=== PATIENT | female | born 1955 | race Caucasian/White ===

== ENCOUNTER → 2017-06-23 | Outpatient (CLI) | payer SELFPAY ==
[~2017-06-23] MED LIST: ASPI81TA94 PO; CARB1DRO24 OP; LAMO200T3 PO; LOSA50TA72 PO; MELO-205 PO; MULT1CAP59 PO; OMEP-125 PO; PROP20TA56 PO; SIMV-54 PO; SOY155CA; TRAZ-156 PO; VENL150C61 PO
--- NOTE | 2017-06-23 14:47 | RADIOLOGY IMAGING REPORT ---
FACILITY: [facility] - [place] PATIENT NAME: Tracy Noble : 1955 MR: [id number] V: [id number] EXAM DATE: ORDERING PHYSICIAN: BETO ARIAS TECHNOLOGIST: Location: [facility] Patient: Tracy Noble : 1955 Visit/Account:[id number] Date of Sevice: 06/23/2017 Technique: CHEST PA AND LAT HISTORY: Chest pain COMPARISON: None available Findings: The lungs are clear. No pleural effusion or pneumothorax. The cardiomediastinal silhouett e is normal. Impression: 1. No acute cardiopulmonary process. Report Dictated By: Sixto Anglin DO at 06/23/2017 2:42 PM Report E-Signed By: Sixto Anglin DO at 06/23/2017 2:43 PM WSN:[id number]
[2017-06-23 14:50] LABS: PLATELET COUNT, AUTOMATED 258 K/uL (150-450)
--- NOTE | 2017-06-23 15:00 | EKG ---
FACILITY: [facility] - [place] PATIENT NAME: BEBETO BOOGIE : [id number] MR: [id number] V: [id number] EXAM DATE: ORDERING PHYSICIAN: BETO ARIAS TECHNOLOGIST: FAIZA Test Reason : CHEST PAIN Blood Pressure : / mmHG Vent. Rate : 059 BPM Atrial Rate : 059 BPM P-R Int : 154 ms QRS Dur : 096 ms QT Int : 414 ms P-R-T Axes : 064 012 030 degrees QTc Int : 409 ms Sinus bradycardia Nonspecific T wave abnormality Abnormal ECG No previous ECGs available Referred By: SVETLANA THOMSON Confirmed By:
== END ==
LOC: LAB 14:02
PROVIDERS: ATTEND Nurse Practitioner Family
DX: R00.1 Bradycardia, unspecified (principal); R94.31 Abnormal electrocardiogram [ECG] [EKG]
CPT/HCPCS: 36415; 71046; 82040; 82247; 82310; 82374; 82435; 82565; 82947; 84075; 84132; 84155; 84295; 84450; 84460; 84484; 84520; 85025

== ENCOUNTER 2018-03-20 11:21 | Emergency (ER) | payer OTHER ==
[~2018-03-20 11:21] MED LIST changes: -LOSA50TA72 PO; +LOSA50TA80 PO; -TRAZ-156 PO; +TRAZ50TA34 PO
[2018-03-20 11:26] VITALS: BP 131/79
--- NOTE | 2018-03-20 11:33 | ER Report ---
History and Physical Time Seen By MD: 11:33 Hx. of Stated Complaint: PT HAS BEEN HAVING FLU LIKE SYMPTOMS FOR A WEEK. PT COMPLAINS OF SORE THROAT, FATIGUE, NAUSEA, SINUS PRESSURE, HEADACHE, AND NON PRODUCTIVE COUGH HPI/ROS CHIEF COMPLAINT: Cough, sinus congestion, sore throat HISTORY OF PRESENT ILLNESS: 62-year-old female patient presents to emergency room with complaint of cough, sinus congestion sore throat. Patient states that this is been going on for approximately one week. She states that things seem to get worse on March 16. She states that she's been taking Tylenol and cold and flu medication. She states that is the only thing that seems to help. She had a day where she slept entirely through the night, through the day and then through the next night. She states she been up for approximately 10 minutes. She denies any nausea, vomiting or diarrhea. States that she has had a low-grade fever of 99 at home. REVIEW OF SYSTEMS: Respiratory: As noted above Cardiovascular: No chest pain, no palpitations. Gastrointestinal: No vomiting, no abdominal pain. Musculoskeletal: No back pain. Allergies: Coded Allergies: Fish Containing Products (Verified Allergy, Severe, Hypotension, bradycardia, weakness, nausea, 06/23/17) carbamazepine (Verified Allergy, Severe, Facial swelling, 06/23/17) avocado (Verified Allergy, Intermediate, Hypotension, bradycardia, weakness, nausea, 06/23/17) Home Meds Active Scripts Propranolol Hcl (PROPRANOLOL HCL) 20 Mg Tablet, 20 MG PO QDAY, #30 TAB Prov:BETO ARIAS NANOTECHNICIAN-BC 06/23/17 Reported Medications Carboxymethylcellulose Sodium (THERA TEARS) Unknown Strength Droperette, OP 06/23/17 Soy Isofla/Blk Cohosh/Mag Bark (Estroven 155 mg Capsule) Unknown Strength Capsule 06/23/17 Simvastatin (SIMVASTATIN) 40 Mg Tablet, 40 MG PO HS, TAB 06/23/17 Multivitamin (MULTIVITAMINS) Unknown Strength Capsule, PO, CAPSULE 06/23/17 Aspirin (ASPIRIN) 81 Mg Tab.chew, 81 MG PO QDAY, TAB.CHEW 06/23/17 Meloxicam (MELOXICAM) 7.5 Mg Tablet, 7.5 MG PO QDAY 06/23/17 Lamotrigine (LAMOTRIGINE) 200 Mg Tab.er.24, 200 MG PO 06/23/17 Venlafaxine Hcl (EFFEXOR XR) 150 Mg Cap.er.24h, 1 TAB PO BID 06/23/17 Discontinued Reported Medications Omeprazole (OMEPRAZOLE) Unknown Strength Capsule.dr, PO BID, CAP 06/23/17 Trazodone Hcl (TRAZODONE HCL) 50 Mg Tablet, 50 MG PO QHS 06/23/17 Losartan Potassium (LOSARTAN POTASSIUM) 50 Mg Tablet, 50 MG PO QDAY 06/23/17 Past Medical/Surgical History Patient has a past medical history of essential tremors, heart murmur, hyperlipidemia, asthma, cholecystitis, arthritis, bipolar. Patient has a surgical history of hysterectomy. Reviewed Nurses Notes: Yes Smoking Status: Former Smoker Constitutional Vital Sign - Last 24 Hours 03/20/18 03/20/18 03/20/18 03/20/18 11:24 11:26 11:30 11:51 Temp 99.0 Pulse 73 68 Resp 16 B/P (MAP) 131/79 (96) 131/79 Pulse Ox 90 85 91 O2 Delivery Room Air Room Air Nasal Cannula O2 Flow Rate 2 03/20/18 03/20/18 03/20/18 12:21 12:51 12:55 Pulse 69 69 Pulse Ox 88 88 93 O2 Delivery Nasal Cannula Nasal Cannula Nasal Cannula O2 Flow Rate 2 2 2 Physical Exam General Appearance: The patient is alert, has no immediate need for airway protection and no current signs of toxicity. ENT: Tympanic membranes are pearly-barba, auditory canals are patent, mucous memb ranes are moist. Respiratory: Chest is non tender, lungs are clear to auscultation. Cardiac: regular rate and rhythm Gastrointestinal: Abdomen is soft and non tender, no masses, bowel sounds normal. Musculoskeletal: Neck: Neck is supple and non tender. Extremities have full range of motion and are non tender. Skin: No rashes or lesions. [DIFFERENTIAL DIAGNOSIS: After history and physical exam differential diagnosis was considered for] [ ] Medical Decision Making Data Points Result Diagram: 03/20/18 1154 03/20/18 1154 Laboratory Hematology Test 03/20/18 11:41 03/20/18 11:54 Influenza Virus Type A (PCR) Negative (NEGATIVE) Influenza Virus Type B (PCR) Negative (NEGATIVE) Respiratory Syncytial Virus (PCR) Positive (NEGATIVE) Red Blood Count 4.60 M/uL (4.17-5.56) Mean Corpuscular Volume 92.3 fL (80.0-96.0) Mean Corpuscular Hemoglobin 31.3 pg (26.0-33.0) Mean Corpuscular Hemoglobin Concent 33.9 g/dL (32.0-36.0) Red Cell Distribution Width 13.5 % (11.5-14.5) Mean Platelet Volume 7.7 fL (7.2-11.1) Neutrophils (%) (Auto) 77.1 % (39.4-72.5) Lymphocytes (%) (Auto) 14.3 % (17.6-49.6) Monocytes (%) (Auto) 6.5 % (4.1-12.4) Eosinophils (%) (Auto) 1.6 % (0.4-6.7) Basophils (%) (Auto) 0.5 % (0.3-1.4) Nucleated RBC Relative Count (auto) 0.0 /100WBC Neutrophils # (Auto) 7.2 K/uL (2.0-7.4) Lymphocytes # (Auto) 1.3 K/uL (1.3-3.6) Monocytes # (Auto) 0.6 K/uL (0.3-1.0) Eosinophils # (Auto) 0.2 K/uL (0.0-0.5) Basophils # (Auto) 0.0 K/uL (0.0-0.1) Nucleated RBC Absolute Count (auto) 0.00 K/uL Sodium Level 137 mmol/L (137-145) Potassium Level 3.9 mmol/L (3.5-5.0) Chloride Level 102 mmol/L (98-107) Carbon Dioxide Level 27 mmol/L (22-31) Blood Urea Nitrogen 14 mg/dl (7-18) Creatinine 0.70 mg/dl (0.52-1.04) Glomerular Filtration Rate Calc > 60.0 Random Glucose 161 mg/dl (75-110) Calcium Level 9.4 mg/dl (8.4-10.2) Total Bilirubin 0.9 mg/dl (0.2-1.3) Aspartate Amino Transf (AST/SGOT) 69 U/L (0-35) Alanine Aminotransferase (ALT/SGPT) 80 U/L (0-56) Alkaline Phosphatase 73 U/L (0-126) Total Protein 7.3 g/dl (6.3-8.2) Albumin 4.1 g/dl (3.5-5.0) Chemistry Test 03/20/18 11:41 03/20/18 11:54 Influenza Virus Type A (PCR) Negative (NEGATIVE) Influenza Virus Type B (PCR) Negative (NEGATIVE) Respiratory Syncytial Virus (PCR) Positive (NEGATIVE) White Blood Count 9.3 k/uL (4.5-11.0) Red Blood Count 4.60 M/uL (4.17-5.56) Hemoglobin 14.4 g/dL (12.0-16.0) Hematocrit 42.4 % (34.0-47.0) Mean Corpuscular Volume 92.3 fL (80.0-96.0) Mean Corpuscular Hemoglobin 31.3 pg (26.0-33.0) Mean Corpuscular Hemoglobin Concent 33.9 g/dL (32.0-36.0) Red Cell Distribution Width 13.5 % (11.5-14.5) Platelet Count 246 K/uL (150-450) Mean Platelet Volume 7.7 fL (7.2-11.1) Neutrophils (%) (Auto) 77.1 % (39.4-72.5) Lymphocytes (%) (Auto) 14.3 % (17.6-49.6) Monocytes (%) (Auto) 6.5 % (4.1-12.4) Eosinophils (%) (Auto) 1.6 % (0.4-6.7) Basophils (%) (Auto) 0.5 % (0.3-1.4) Nucleated RBC Relative Count (auto) 0.0 /100WBC Neutrophils # (Auto) 7.2 K/uL (2.0-7.4) Lymphocytes # (Auto) 1.3 K/uL (1.3-3.6) Monocytes # (Auto) 0.6 K/uL (0.3-1.0) Eosinophils # (Auto) 0.2 K/uL (0.0-0.5) Basophils # (Auto) 0.0 K/uL (0.0-0.1) Nucleated RBC Absolute Count (auto) 0.00 K/uL Glomerular Filtration Rate Calc > 60.0 Calcium Level 9.4 mg/dl (8.4-10.2) Total Bilirubin 0.9 mg/dl (0.2-1.3) Aspartate Amino Transf (AST/SGOT) 69 U/L (0-35) Alanine Aminotransferase (ALT/SGPT) 80 U/L (0-56) Alkaline Phosphatase 73 U/L (0-126) Total Protein 7.3 g/dl (6.3-8.2) Albumin 4.1 g/dl (3.5-5.0) EKG/Imaging Imaging CHEST PA AND LAT HISTORY: 62-year-old female with shortness of breath. COMPARISON: June 23, 2017 FINDINGS: Cardiomediastinal contours: The heart size is normal. Lungs and pleura: There is no finding of an infiltrate, lymphadenopathy or pleural effusion. Bones/soft tissues: There are no findings of a fracture. IMPRESSION: No active disease in the chest. Report Dictated By: Jah Naidu MD at 03/20/2018 1:03 PM Report E-Signed By: Jah Naidu MD at 03/20/2018 1:03 PM ED Course/Re-evaluation ED Course Patient submitted to an exam room, history and physical were obtained. Differential diagnoses were considered. On examination lungs are clear, heart is regular, abdomen soft nontender. An influenza, RSV, CBC, CMP and chest x-ray were done. CBC and CMP were unremarkable, influenza was negative, RSV was p ositive. Chest x-ray showed no acute cardiopulmonary processes. I believe that the patient is having cough and feeling so poorly because of the RSV. I discussed that with patient. She states that she had a grandson was visiting that had been ill and she started getting sick approximately one day after he had returned home. I believe this is likely where she got in the RSV. Patient did have some episodes of hypoxia when she would dip down into the 85%. I discussed home oxygen with patient. She refused stating that she is not able to afford it, stating that she did not believe that her insurance would cover. She states that she is going to use her mother's oxygen tanks which she doesn't use. Decision to Disposition Date: Mar 20, 2018 Decision to Disposition Time: 13:21 Depart Departure Latest Vital Signs Vital Signs Date Time Temp Pulse Resp B/P (MAP) Pulse Ox O2 Delivery O2 Flow Rate FiO2 03/20/18 12:55 93 Nasal Cannula 2 03/20/18 12:51 69 03/20/18 11:26 99.0 16 131/79 Impression: Primary Impression: RSV (respiratory syncytial virus infection) Condition: Improved Disposition: HOME OR SELF-CARE Patient Instructions: Respiratory Syncytial Virus (ED) Additional Instructions: Increase fluid intake. Get plenty of rest. Continue taking Ibuprofen and the flu medication. Limit activity by how you are feeling. Return to the ER if condition worsens. Follow up with your primary care provider in the next week. This should improve over the next 3-5 days. RAMSES ALBARADO Mar 20, 2018 11:33
[2018-03-20 12:01] LABS: PLATELET COUNT, AUTOMATED 246 K/uL (150-450)
--- NOTE | 2018-03-20 13:07 | RADIOLOGY IMAGING REPORT ---
FACILITY: [facility] [place] PATIENT NAME: Tracy Rivers : 1955 MR: [id number] V: [id number] EXAM DATE: ORDERING PHYSICIAN: RAMSES ALBARAOD TECHNOLOGIST: [place] [facility] [place] : 1955 Visit/Account:[id number] Date of Sevice: 03/20/2018 CHEST PA AND LAT HISTORY: 62-year-old female with shortness of breath. COMPARISON: June 23, 2017 FINDINGS: Cardiomediastinal contours: The heart size is normal. Lungs and pleura: There is no finding of an infiltrate, lymphadenopathy or pleural effusion. Bones/soft tissues: There are no findings of a fracture. IMPRESSION: No active disease in the chest. Report Dictated By: Jah Naidu MD at 03/20/2018 1:03 PM Report E-Signed By: Jah Naidu MD at 03/20/2018 1:03 PM [id number]
== END 2018-03-20 13:34 | disposition home or self-care (01) ==
LOC: ER 11:24
DX: J21.0 Acute bronchiolitis due to respiratory syncytial virus (principal)
CPT/HCPCS: 36415; 71046; 82040; 82247; 82310; 82374; 82435; 82565; 82947; 84075; 84132; 84155; 84295; 84450; 84460; 84520; 85025; 87502; 87798; 99283

== ENCOUNTER 2018-03-24 08:17 | Emergency (ER) | payer OTHER ==
[2018-03-24] MEDS ORDERED: NS(*) 0.9% 1000 ML BAG 1,000 ML IV ONE (09:10)
--- NOTE | 2018-03-24 09:19 | ER Report ---
History and Physical Time Seen By MD: 08:55 Hx. of Stated Complaint: pt self diagnosed pneumonia, hoarse voice and cough, pressure in chest, "prickly pain in chest". blood tinged sputum. r side ear clogged. fatigued HPI/ROS CHIEF COMPLAINT: shortness of breath HISTORY OF PRESENT ILLNESS: Pt has had 2 wks of dyspnea, cough. Pt has mild coughing paroxysms, followed by shortness of breath that improves, and associated with bilateral, lateral lower chest/rib pain, melvin during coughing. Was seen here last week, dx'd with viral resp infection, sent home on 02, and returns because this has not resolved and she is worse. Pt feels fatigued, has developed voice hoarseness, myalgias, and 'clogged r ear'. Of note, nursing note states 'pressure in chest'; pt denies central/l chest pain/pressure; she points to lateral lower ribs when describing pain. No chest pain/pressure on exertion. Pt did fly by air to [place] last month, no prior VTE, notes no LE edema or pain. No syncope. Decreased po intake, dark urine, no dysuria, no change in stools. Has been taking otc meds, no recent abx, prednisone, albuterol. Notes she has mild asthma and takes symbacort. Feels like she has been wheezing. REVIEW OF SYSTEMS: Constitutional: chills Eyes: No discharge. ENT: sore throat, other as above Cardiovascular: as above Respiratory: as above Gastrointestinal: mild abd pain trhoughout with coughing. + nausea, no vomiting Genitourinary: above Musculoskeletal: No back pain. Skin: No rashes. Neurological: no focal weakness Remainder of the 14 system rev: Yes Allergies: Coded Allergies: Fish Containing Products (Verified Allergy, Severe, Hypotension, bradycardia, weakness, nausea, 06/23/17) carbamazepine (Verified Allergy, Severe, Facial swelling, 06/23/17) avocado (Verified Allergy, Intermediate, Hypotension, bradycardia, weakness, nausea, 06/23/17) Iodine and Iodide Containing Produc (Verified Allergy, Mild, rash, 03/24/18) Home Meds Active Scripts Albuterol Sulfate (ALBUTEROL SULFATE) 0.63 Mg/3 Ml Vial.neb, 0.63 MG IH Q4-6H, #30 VIAL Prov:MAL HENSON MD 03/24/18 Propranolol Hcl (PROPRANOLOL HCL) 20 Mg Tablet, 20 MG PO QDAY, #30 TAB Prov:BETO ARIAS Blanca LEAD HOUSEKEEPER-BC 06/23/17 Reported Medications Carboxymethylcellulose Sodium (THERA TEARS) Unknown Strength Droperette, OP 06/23/17 Soy Isofla/Blk Cohosh/Mag Bark (Estroven 155 mg Capsule) Unknown Strength Capsule 06/23/17 Simvastatin (SIMVASTATIN) 40 Mg Tablet, 40 MG PO HS, TAB 06/23/17 Multivitamin (MULTIVITAMINS) Unknown Strength Capsule, PO, CAPSULE 06/23/17 Aspirin (ASPIRIN) 81 Mg Tab.chew, 81 MG PO QDAY, TAB.CHEW 06/23/17 Meloxicam (MELOXICAM) 7.5 Mg Tablet, 7.5 MG PO QDAY 06/23/17 Lamotrigine (LAMOTRIGINE) 200 Mg Tab.er.24, 200 MG PO 06/23/17 Venlafaxine Hcl (EFFEXOR XR) 150 Mg Cap.er.24h, 1 TAB PO BID 06/23/17 Discontinued Reported Medications Omeprazole (OMEPRAZOLE) Unknown Strength Capsule.dr, PO BID, CAP 06/23/17 Trazodone Hcl (TRAZODONE HCL) 50 Mg Tablet, 50 MG PO QHS 06/23/17 Losartan Potassium (LOSARTAN POTASSIUM) 50 Mg Tablet, 50 MG PO QDAY 06/23/17 Reviewed Nurses Notes: Yes Old Medical Records Reviewed: Yes Smoking Status: Former Smoker Hx Substance Use Disorder: No Hx Alcohol Use: No Constitutional Vital Sign - Last 24 Hours 03/24/18 03/24/18 03/24/18 03/24/18 08:17 08:21 08:22 08:30 Temp 98.0 Pulse ??? 65 Resp 18 B/P (MAP) 118/69 118/69 (85) 122/82 (95) Pulse Ox 86 O2 Delivery Room Air 03/24/18 03/24/18 03/24/18 03/24/18 08:32 08:37 09:00 09:02 Pulse 61 65 Resp 17 B/P (MAP) 91/77 (82) Pulse Ox 96 97 O2 Flow Rate 1.0 03/24/18 03/24/18 03/24/18 03/24/18 09:17 09:30 09:32 09:47 Pulse ??? 58 65 Resp 45 8 19 B/P (MAP) 121/77 (92) Pulse Ox 94 98 97 03/24/18 03/24/18 03/24/18 03/24/18 10:00 10:02 10:07 10:22 Pulse ? 62 Resp 14 B/P (MAP) 99/72 (81) Pulse Ox 92 03/24/18 03/24/18 03/24/18 03/24/18 10:30 10:37 10:52 11:00 Pulse 63 63 Resp 12 9 B/P (MAP) 134/78 (96) 129/80 (96) Pulse Ox 95 95 03/24/18 03/24/18 03/24/18 03/24/18 11:07 11:22 11:30 11:37 Pulse 65 73 61 Resp 5 B/P (MAP) 133/81 (98) Pulse Ox 92 95 94 03/24/18 03/24/18 11:52 12:00 Pulse 63 B/P (MAP) 127/75 (92) Pulse Ox 93 Physical Exam General Appearance: The patient is alert, has no immediate need for airway protection and no signs of toxicity. Eyes: Pupils equal and round no pallor or injection. ENT, Mouth: Mucous membranes are moist. Mild op erythema without tonsilar enlargement or exudates. Hoarse voice. TM's clear Respiratory: There are no retractions, lungs are clear to auscultation. No rales/ronchi/wheezes Cardiovascular: Regular rate and rhythm. no m/r/g Gastrointestinal: Abdomen is soft and non tender, no masses, bowel sounds normal. Neurological: alert, oriented, moves all ext Skin: Warm and dry, no rashes. Musculoskeletal: Extremities are nontender, nonswollen and have full range of motion. DIFFERENTIAL DIAGNOSIS: After history and physical exam differential diagnosis was considered for shortness of breath including but not limited to pulmonary infectious process, COPD, asthma, pulmonary embolus and congestive heart failure, acs. Medical Decision Making Data Points Result Diagram: 03/24/18 0830 03/24/18 0830 Laboratory Hematology Test 03/24/18 00:00 03/24/18 08:30 03/24/18 08:45 03/24/18 10:09 D-Dimer Quantitative (PE/DVT) 0.58 ug/ml (0-0.50) Red Blood Count 4.26 M/uL (4.17-5.56) Mean Corpuscular Volume 91.7 fL (80.0-96.0) Mean Corpuscular Hemoglobin 31.0 pg (26.0-33.0) Mean Corpuscular Hemoglobin Concent 33.8 g/dL (32.0-36.0) Red Cell Distribution Width 13.4 % (11.5-14.5) Mean Platelet Volume 8.0 fL (7.2-11.1) Neutrophils (%) (Auto) 61.9 % (39.4-72.5) Lymphocytes (%) (Auto) 25.9 % (17.6-49.6) Monocytes (%) (Auto) 8.5 % (4.1-12.4) Eosinophils (%) (Auto) 3.0 % (0.4-6.7) Basophils (%) (Auto) 0.7 % (0.3-1.4) Nucleated RBC Relative Count (auto) 0.0 /100WBC Neutrophils # (Auto) 5.3 K/uL (2.0-7.4) Lymphocytes # (Auto) 2.2 K/uL (1.3-3.6) Monocytes # (Auto) 0.7 K/uL (0.3-1.0) Eosinophils # (Auto) 0.3 K/uL (0.0-0.5) Basophils # (Auto) 0.1 K/uL (0.0-0.1) Nucleated RBC Absolute Count (auto) 0.00 K/uL Sodium Level 140 mmol/L (137-145) Potassium Level 4.0 mmol/L (3.5-5.0) Chloride Level 102 mmol/L (98-107) Carbon Dioxide Level 29 mmol/L (22-31) Blood Urea Nitrogen 12 mg/dl (7-18) Creatinine 0.70 mg/dl (0.52-1.04) Glomerular Filtration Rate Calc > 60.0 Random Glucose 121 mg/dl (75-110) Calcium Level 9.3 mg/dl (8.4-10.2) Total Bilirubin 0.6 mg/dl (0.2-1.3) Aspartate Amino Transf (AST/SGOT) 75 U/L (0-35) Alanine Aminotransferase (ALT/SGPT) 87 U/L (0-56) Alkaline Phosphatase 122 U/L (0-126) B-Type Natriuretic Peptide 32 pg/ml (0-100) Total Protein 7.5 g/dl (6.3-8.2) Albumin 4.1 g/dl (3.5-5.0) Influenza Virus Type A (PCR) Negative (NEGATIVE) Influenza Virus Type B (PCR) Negative (NEGATIVE) Urine Color Layla Urine Clarity Cloudy Urine pH 5.0 pH (4.8-9.5) Urine Specific [place] 1.025 Urine Protein 100 mg/dL (NEGATIVE) Urine Glucose (UA) Negative mg/dL (NEGATIVE) Urine Ketones Negative mg/dL (NEGATIVE) Urine Blood Large (NEGATIVE) Urine Nitrite Negative (NEGATIVE) Urine Bilirubin Negative (NEGATIVE) Urine Urobilinogen 4.0 mg/dL (0.2-1.9) Urine Leukocyte Esterase Small (NEGATIVE) Urine RBC 1970 /HPF (0-2/HPF) Urine WBC None /HPF (0-5/HPF) Urine Squamous Epithelial Cells Many /LPF (</=FEW) Urine Bacteria Negative /HPF (NONE-FEW) Urine Hyaline Casts Many /LPF (NONE-FEW) Urine Mucus Few /HPF (NONE-FEW) Urine Yeast (Budding) Few /HPF Chemistry Test 03/24/18 00:00 03/24/18 08:30 03/24/18 08:45 03/24/18 10:09 D-Dimer Quantitative (PE/DVT) 0.58 ug/ml (0-0.50) White Blood Count 8.6 k/uL (4.5-11.0) Red Blood Count 4.26 M/uL (4.17-5.56) Hemoglobin 13.2 g/dL (12.0-16.0) Hematocrit 39.0 % (34.0-47.0) Mean Corpuscular Volume 91.7 fL (80.0-96.0) Mean Corpuscular Hemoglobin 31.0 pg (26.0-33.0) Mean Corpuscular Hemoglobin Concent 33.8 g/dL (32.0-36.0) Red Cell Distribution Width 13.4 % (11.5-14.5) Platelet Count 309 K/uL (150-450) Mean Platelet Volume 8.0 fL (7.2-11.1) Neutrophils (%) (Auto) 61.9 % (39.4-72.5) Lymphocytes (%) (Auto) 25.9 % (17.6-49.6) Monocytes (%) (Auto) 8.5 % (4.1-12.4) Eosinophils (%) (Auto) 3.0 % (0.4-6.7) Basophils (%) (Auto) 0.7 % (0.3-1.4) Nucleated RBC Relative Count (auto) 0.0 /100WBC Neutrophils # (Auto) 5.3 K/uL (2.0-7.4) Lymphocytes # (Auto) 2.2 K/uL (1.3-3.6) Monocytes # (Auto) 0.7 K/uL (0.3-1.0) Eosinophils # (Auto) 0.3 K/uL (0.0-0.5) Basophils # (Auto) 0.1 K/uL (0.0-0.1) Nucleated RBC Absolute Count (auto) 0.00 K/uL Glomerular Filtration Rate Calc > 60.0 Calcium Level 9.3 mg/dl (8.4-10.2) Total Bilirubin 0.6 mg/dl (0.2-1.3) Aspartate Amino Transf (AST/SGOT) 75 U/L (0-35) Alanine Aminotransferase (ALT/SGPT) 87 U/L (0-56) Alkaline Phosphatase 122 U/L (0-126) B-Type Natriuretic Peptide 32 pg/ml (0-100) Total Protein 7.5 g/dl (6.3-8.2) Albumin 4.1 g/dl (3.5-5.0) Influenza Virus Type A (PCR) Negative (NEGATIVE) Influenza Virus Type B (PCR) Negative (NEGATIVE) Urine Color Layla Urine Clarity Cloudy Urine pH 5.0 pH (4.8-9.5) Urine Specific [place] 1.025 Urine Protein 100 mg/dL (NEGATIVE) Urine Glucose (UA) Negative mg/dL (NEGATIVE) Urine Ketones Negative mg/dL (NEGATIVE) Urine Blood Large (NEGATIVE) Urine Nitrite Negative (NEGATIVE) Urine Bilirubin Negative (NEGATIVE) Urine Urobilinogen 4.0 mg/dL (0.2-1.9) Urine Leukocyte Esterase Small (NEGATIVE) Urine RBC 1970 /HPF (0-2/HPF) Urine WBC None /HPF (0-5/HPF) Urine Squamous Epithelial Cells Many /LPF (</=FEW) Urine Bacteria Negative /HPF (NONE-FEW) Urine Hyaline Casts Many /LPF (NONE-FEW) Urine Mucus Few /HPF (NONE-FEW) Urine Yeast (Budding) Few /HPF Coagulation Test 03/24/18 00:00 D-Dimer Quantitative (PE/DVT) 0.58 ug/ml Urinalysis Test 03/24/18 10:09 Urine Color Layla Urine Clarity Cloudy Urine pH 5.0 pH (4.8-9.5) Urine Specific [place] 1.025 Urine Protein 100 mg/dL (NEGATIVE) Urine Glucose (UA) Negative mg/dL (NEGATIVE) Urine Ketones Negative mg/dL (NEGATIVE) Urine Blood Large (NEGATIVE) Urine Nitrite Negative (NEGATIVE) Urine Bilirubin Negative (NEGATIVE) Urine Urobilinogen 4.0 mg/dL (0.2-1.9) Urine Leukocyte Esterase Small (NEGATIVE) Urine RBC 1970 /HPF (0-2/HPF) Urine WBC None /HPF (0-5/HPF) Urine Squamous Epithelial Cells Many /LPF (</=FEW) Urine Bacteria Negative /HPF (NONE-FEW) Urine Hyaline Casts Many /LPF (NONE-FEW) Urine Mucus Few /HPF (NONE-FEW) Urine Yeast (Budding) Few /HPF EKG/Imaging EKG Interpretation 12 lead EKG: Rhythm: normal sinus rhythm [place]: normal QRS: normal ST segments: normal Normal sociology faculty member Interpretation: Normal Sinus Rhythm ED Course/Re-evaluation ED Course Pt presents with congestion/chest discomfort; most clinically c/w viral respiratory infection. Considered but v low likelihood acs, pe, bacterial pna, or other emergent etiology after ED eval. Of note, pt has incidental hematuria/proteinuria of unclear etiology; pt informed and understands need for close f/u and SRP's. Decision to Disposition Date: Mar 24, 2018 Decision to Disposition Time: 12:25 Depart Departure Latest Vital Signs Vital Signs Date Time Temp Pulse Resp B/P (MAP) Pulse Ox O2 Delivery O2 Flow Rate FiO2 03/24/18 12:00 127/75 (92) 03/24/18 11:52 63 93 03/24/18 11:07 5 03/24/18 08:37 1.0 03/24/18 08:21 98.0 Room Air Impression: Primary Impression: Lower respiratory infection Additional Impression: Hematuria Condition: Improved Disposition: HOME OR SELF-CARE Referrals: [facility] 2 Days follow up with [facility] or your primary doctor within 1 week for re- evaluation and recheck of urine New Scripts Albuterol Sulfate (ALBUTEROL SULFATE) 0.63 Mg/3 Ml Vial.neb 0.63 MG IH Q4-6H, #30 VIAL Prov: MAL HENSON MD 03/24/18 Patient Instructions: Upper Respiratory Infection (ED) Additional Instructions: we discussed, follow up within 1 week for repeat urine testing by your primary doctor to look for blood/protein, and determine need for urology evaluation Please return immediately for worsening difficulty breathing, feeling worse, not able to tolerate fluids, chest pain, or any concerns. Problem Qualifiers Additional Impression: Hematuria Hematuria type: unspecified type Qualified Codes: R31.9 - Hematuria, unspecified MAL HENSON MD Mar 24, 2018 09:19
[2018-03-24 09:33] LABS: PLATELET COUNT, AUTOMATED 309 K/uL (150-450)
--- NOTE | 2018-03-24 09:39 | RADIOLOGY IMAGING REPORT ---
FACILITY: [facility] PATIENT NAME: Tracy Rivers : 1955 MR: [id number] V: [id number] EXAM DATE: ORDERING PHYSICIAN: MAL HENSON TECHNOLOGIST: Location: [facility] - [place] Patient: Tracy Rivers : 1955 Visit/Account:[id number] Date of Sevice: 03/24/2018 2 VIEWS CHEST INDICATION: Dyspnea. COMPARISON: March 20, 2018. FINDINGS: Heart size within normal limits. There is no focal infiltrate or lobar consolidation. There is no pneumothorax or pleural effusion. IMPRESSION: 1. No acute cardiopulmonary process. Report Dictated By: Artis Bartholomew MD at 03/24/2018 9:33 AM Report E-Signed By: Artis Bartholomew MD at 03/24/2018 9:34 AM WSN:[id number]
[2018-03-24] MEDS ORDERED: ALBU0.636 IH (11:22)
--- NOTE | 2018-03-24 11:51 | EKG ---
FACILITY: [facility] - [place] PATIENT NAME: BEBETO ESTRADA : [id number] MR: [id number] V: [id number] EXAM DATE: ORDERING PHYSICIAN: MAL HENSON TECHNOLOGIST: CHARLA Test Reason : SOB Blood Pressure : / mmHG Vent. Rate : 060 BPM Atrial Rate : 060 BPM P-R Int : 150 ms QRS Dur : 086 ms QT Int : 428 ms P-R-T Axes : 061 009 013 degrees QTc Int : 428 ms Normal sinus rhythm Normal ECG When compared with ECG of 23-JUN-2017 13:15, No significant change was found Confirmed by Marty Omer ([id number]) on 03/24/2018 1:26:42 PM Referred By: NATIVIDAD Confirmed By:Marty Dumont
[2018-03-24 12:00] VITALS: BP 127/75
== END 2018-03-24 12:36 | disposition home or self-care (01) ==
LOC: ER 08:20
DX: J22 Unspecified acute lower respiratory infection (principal); R31.9 Hematuria, unspecified
CPT/HCPCS: 71046; 81001; 83880; 85025; 85379; 87502; 93005; 96360; 96361; 99284; J7030; 82040; 82247; 82310; 82374; 82435; 82565; 82947; 84075; 84132; 84155; 84295; 84450; 84460; 84520

== ENCOUNTER → 2018-04-16 | Outpatient (CLI) | payer OTHER ==
[~2018-04-16] MED LIST changes: +ALBU0.636 IH; +IOPAMIDOL 76% 100 ML INFUS BTL 0 ML ONE
--- NOTE | 2018-04-16 11:42 | RADIOLOGY IMAGING REPORT ---
[facility] PATIENT NAME: Tracy Rivers : 1955 MR: [id number] V: [id number] EXAM DATE: ORDERING PHYSICIAN: VICKIE FUNK TECHNOLOGIST: Location: [facility] Patient: Tracy Rivers : 1955 Visit/Account:[id number] Date of Sevice: 04/16/2018 CT ABDOMEN PELVIS W/O CON HISTORY: Hematuria TECHNIQUE: Axial images acquired through the abdomen/pelvis. Coronal and sagittal reformatting also performed. No IV contrast administered.Dose Lowering Technique One of the following dose optimization techniques was utilized in the performance of this exam: Autom ated exposure control; adjustment of the mA and/or kV according to the patient's size; or use of an i terative reconstruction technique. Specific details can be referenced in the facility's radiology C T exam operational policy. COMPARISON: None. FINDINGS: Visualized lung bases: There are subtle reticular nodular changes in the right lower lobe Hepatobiliary: Postsurgical changes from a cholecystectomy Spleen: Negative. Adrenals: There is a 1.2 x 0.6 x 1.1 cm hypoattenuating right adrenal nodule Pancreas: Negative. Kidneys ureters and bladder: There is a 7 mm intraparenchymal calcification in the interpolar region of the right kidney. There is a 1 to 2 mm obstructing calculus upper pole calyx of the right kidney. There is a 6 x 4 mm nonobstructing calculus lower pole calyx of the right kidney Genitalia: Hysterectomy. There is a 3.6 x 2.7 x 6.1 cm multicystic structure in the left adnexa pos sibly relating to the left ovary. There is a 5.4 x 3.1 x 3.3 cm multicystic structure in the right a dnexa possibly representing the right ovary GI: There is a small hiatal hernia Vessels/spaces/nodes: There mild atherosclerotic calcifications in the abdominal aorta and branch ve ssels Bones/soft tissues: There multiple Schmorl's nodes incidentally noted and spondylotic changes in the lumbar spine. At the level of L4-5 there is a large disc bulge/protrusion both centrally and eccent abhijeet towards the left. Bulging discs are also noted at additional levels in the lumbar spine Additional findings: None pertinent. IMPRESSION: There are nonobstructing calculi in the right renal collecting system. There is a 7 mm intraparenchy mal calcification in the interpolar region of the right kidney There is a 1.2 x 0.6 x 1.1 cm hypoattenuating right adrenal nodule Small hiatal hernia Large disc bulge/protrusion at L4-5 and additional bulging discs throughout the lumbar spine Subtle reticular nodular changes in the right lower lobe. These could be chronic although an acute i nfectious/inflammatory process is not excluded Large multicystic structure seen in both adnexa which may be related to the sen[place]-cay[place] ovaries. The diane ent is status post hysterectomy. This could be further evaluated with pelvic ultrasound. Report Dictated By: Brionna Dinero MD at 04/16/2018 11:24 AM Report E-Signed By: Brionna Dinero MD at 04/16/2018 11:37 AM WSN:[id number]
== END ==
LOC: CT 01:08
DX: N20.0 Calculus of kidney (principal); K44.9 Diaphragmatic hernia without obstruction or gangrene; N70.93 Salpingitis and oophoritis, unspecified; R91.8 Other nonspecific abnormal finding of lung field
CPT/HCPCS: 74176; Q9967

== ENCOUNTER → 2018-05-14 | Outpatient (REF) ==
[~2018-05-14] MED LIST changes: +BUDE10.2 INH; +FLUT50DI3 IH; -IOPAMIDOL 76% 100 ML INFUS BTL 0 ML ONE; +MONT10TA PO
--- NOTE | 2018-05-14 15:49 | RADIOLOGY IMAGING REPORT ---
FACILITY: [facility] [place] PATIENT NAME: Tracy Rivers : 1955 MR: [id number] V: [id number] EXAM DATE: ORDERING PHYSICIAN: CHRISTO MULLER TECHNOLOGIST: [place] [facility] [place] : 1955 Visit/Account:[id number] Date of Sevice: 05/14/2018 PELVIC HISTORY: Pelvic pain x2 months, hematuria, history of stones TECHNIQUE: Transvaginal and transabdominal ultrasound pelvis. COMPARISON: CT abdomen pelvis April 16, 2018 FINDINGS: Uterus: Surgically absent Ovaries: Right - 3 x 3.6 x 2.4 cm Left - 3.6 x 2.8 x 2.7 cm Blood flow is documented in each ovary by duplex Doppler ultrasound. There are multiple contiguous cysts versus large multiseptated cystic masses identified in both ovari es. The largest cystic structure without septation on the right measures 2.1 cm in diameter. The la rgest on the left measures 2 cm Adnexa: Grossly unremarkable. Free pelvic fluid: None. IMPRESSION: Postsurgical changes from hysterectomy There are multiple contiguous cysts versus large multi septated cystic mass is identified in both ova sandie as detailed above Report Dictated By: Brionna Dinero MD at 05/14/2018 3:41 PM Report E-Signed By: Brionna Dinero MD at 05/14/2018 3:45 PM WSN:[email or web address]
== END ==
LOC: US 07:08 → EDSTATUS 08:28
PROVIDERS: ATTEND Family Medicine
DX: N83.201 Unspecified ovarian cyst, right side (principal); N83.202 Unspecified ovarian cyst, left side
CPT/HCPCS: 76830; 76856